=== PATIENT | male | born 1950 | race Caucasian/White ===

== ENCOUNTER 2023-02-25 14:08 | Emergency (ER) | payer OTHER, MEDICAID ==
[~2023-02-25] VITALS: Ht 177.8 cm; Wt 68.0 kg
[2023-02-25 14:15] VITALS: BP 116/58; PULSE 82; RESP 20; TEMP 98.5; O2SAT 99
--- NOTE | 2023-02-25 14:16 | NUR ---
Pt to bed 2. Bought in by ambulance-[facility]. Pt brought in for hematuria in his F/C. Hx of UTI/Sepsis 2 weeks ago.
--- NOTE | 2023-02-25 14:36 | NUR ---
EVALUATING PT AT BS.
[2023-02-25 15:31] LABS: HEMATOCRIT 35.7 % (36-52); MEAN CORPUSCULAR HEMOGLOBIN 30 pg (27-31); MEAN CORPUSCULAR HGB CONC 34 g/dL (33-37); MEAN CORPUSCULAR VOLUME 87.9 fL (80-94); PLATELET COUNT (AUTO) 376 K/uL (140-450); RED BLOOD CELL COUNT(AUTO) 4.06 MIL/uL (4.20-6.10); RED CELL DISTRIBUTION WIDTH 15.1 % (11.6-13.7); WHITE BLOOD COUNT (AUTO) 20.5 K/uL (4.8-10.8)
[2023-02-25 15:39] LABS: ANION GAP 11.8 (8-16); CARBON DIOXIDE 30.2 mmol/L (21-32); CHLORIDE 96 mmol/L (98-107); GLUCOSE 97 mg/dL (74-106); SODIUM SERUM 134 mmol/L (136-145); UREA NITROGEN, BLOOD 21 mg/dL (7-18)
[2023-02-25 15:48] LABS: PROTHROMBIN TIME 10.8 secs (10.8-13.4)
[2023-02-25 15:54] LABS: EOSINOPHILS % (MANUAL) 1 % (0-4); LYMPHOCYTES % (MANUAL) 14 % (20-46); MONOCYTES % (MANUAL) 3 % (5-12)
[2023-02-25 15:55] LABS: PROMYELOCYTES % 1 % (0-0)
--- NOTE | 2023-02-25 17:20 | NUR ---
AT RE-EVALUATING THE PT. EXPLAINED TO THE PT THE IMPORTANCE OF OBTAINING ADDITIONAL LABS. PT HAD PREVIOUSLY REFUSED. PT NOW AGREEING TO ALLOW BLD DRAW. [facility]A SENT TO LAB.
--- NOTE | 2023-02-25 17:44 | NUR ---
LAB DRAWING PT'S BLOOD AND CULTURES.
--- NOTE | 2023-02-25 18:27 | NUR ---
FORMED BM X 1 NOTED. DIAPER CHANGED. PERICARE PERFORMED. PT TOLERATED IT WELL. F/C DRAINING BRIGHT RED BLOODY URINE. NO CLOTS NOTED.
[2023-02-25 18:52] LABS: APPEARANCE,URINE BLOODY (CLEAR); BILIRUBIN,URINE 1+ (NEGATIVE); BLOOD, URINE 3+ (NEGATIVE); COLOR,URINE RED (YELLOW); LEUKOCYTE ESTERASE ,URINE 3+ (NEGATIVE); NITRITE, URINE POSITIVE (NEGATIVE); PH,URINE 7.5 (5.0-9.0); UGLUCOSE 1+ (NEGATIVE)
--- NOTE | 2023-02-25 19:02 | NUR ---
PT ANXIOUS TO GO HOME. AT INFORMING PT THAT HE WOULD LIKE TO ADMIT THE PT. PT ASKING PT IF HE WOULD BE WILLING TO ALLOW FOR AN IV TO BE INSERTED.
[2023-02-25 19:03] LABS: RBC,URINE 20-50 /HPF (0-5)
[2023-02-25] MEDS ORDERED: cefTRIAXone 1,000 MG VIAL ONE (20:01)
--- NOTE | 2023-02-26 00:53 | NUR ---
[facility] TRANSPORT AT BEDSIDE
--- NOTE | 2023-02-26 00:54 | NUR ---
Patient to be transferred to [facility]. Is being transferred due to insurance purpose. Receiving facility has accepting physician and available space. ER physician has signed transfer form. Patient or responsible constitution party has agreed to transfer and signed form. Patient belongings inventoried and will be sent with patient. Copy of nursing notes, lab reports, EKG, Physicians Orders and X-rays to be sent with patient. Report called to MARTHA Welsh at receiving facility. [facility] ambulance service has arrived for transport. Pt left ED in stable condition.
[2023-02-26 01:09] VITALS: BP 114/51; PULSE 76; RESP 20; TEMP 97.4; O2SAT 95
--- NOTE | 2023-02-26 01:09 | NUR ---
PT TAKEN BY [facility] TRANSPORT TO [facility]
== END 2023-02-26 01:09 | disposition short-term general hospital (02) ==
LOC: MED 14:08
DX: N39.0 Urinary tract infection, site not specified (principal); D72.829 Elevated white blood cell count, unspecified; Z20.822 Contact with and (suspected) exposure to COVID-19; K21.9 Gastro-esophageal reflux disease without esophagitis; E78.5 Hyperlipidemia, unspecified; I10 Essential (primary) hypertension; Z86.69 Personal history of other diseases of the nervous system and sense organs
CPT/HCPCS: 36415; 51702; 80048; 81001; 83605; 85025; 85610; 85730; 87040; 87086; 87426; 96365; 99285; J0696

== ENCOUNTER 2023-03-28 22:55 | Emergency (ER) | payer OTHER, MEDICAID ==
[~2023-03-28] VITALS: Ht 170.2 cm; Wt 63.5 kg
[2023-03-28 22:56] VITALS: BP 144/72; PULSE 87; RESP 18; TEMP 99; O2SAT 97
[2023-03-28 23:40] VITALS: O2SAT 96
[2023-03-29 01:07] VITALS: TEMP 99
[2023-03-29] MEDS ORDERED: ONDANSETRON 4 MG/2 ML VIAL IVP ONE (02:15)
[2023-03-29] MEDS ORDERED: VANCOMYCIN 1,000 MG in DEXTROSE 5% 250 ML IV ONE (02:15)
[2023-03-29] MEDS ORDERED: MEROPENEM 1,000 MG in NACL 0.9% 50 ML IV ONE (02:15)
[2023-03-29] MEDS ORDERED: NACL 0.9% 1,000 ML IV ONE (02:15)
[2023-03-29] MEDS ORDERED: MEROPENEM 1,000 MG VIAL IV ONE (02:36)
[2023-03-29 03:24] LABS: HEMATOCRIT 35.2 % (36-52); HEMOGLOBIN 12.2 g/dL (12.0-18.0); MEAN CORPUSCULAR HEMOGLOBIN 30 pg (27-31); MEAN CORPUSCULAR HGB CONC 35 g/dL (33-37); MEAN CORPUSCULAR VOLUME 86.7 fL (80-94); PLATELET COUNT (AUTO) 337 K/uL (140-450); RED BLOOD CELL COUNT(AUTO) 4.06 MIL/uL (4.20-6.10); RED CELL DISTRIBUTION WIDTH 15.4 % (11.6-13.7); WHITE BLOOD COUNT (AUTO) 24.1 K/uL (4.8-10.8)
[2023-03-29 03:31] VITALS: O2SAT 96
[2023-03-29 03:44] LABS: ALANINE AMINOTRANSFERASE 25 U/L (12-78); ALBUMIN 3.3 g/dL (3.4-5.0); ALKALINE PHOSPHATASE 91 U/L (50-136); ANION GAP 11.3 (8-16); ASPARTATE AMINOTRANSFERASE 28 U/L (15-37); CARBON DIOXIDE 27.9 mmol/L (21-32); CHLORIDE 94 mmol/L (98-107); CREATININE 1.3 mg/dL (0.6-1.3); GLUCOSE 129 mg/dL (74-106); POTASSIUM 4.2 mmol/L (3.5-5.1); SODIUM SERUM 129 mmol/L (136-145); TOTAL BILIRUBIN 0.8 mg/dL (0.0-1.0); TOTAL PROTEIN, SERUM 7.4 g/dL (6.4-8.2); UREA NITROGEN, BLOOD 21 mg/dL (7-18)
[2023-03-29] MEDS ORDERED: VANCOMYCIN 1,000 MG VIAL ONE (03:45)
[2023-03-29] MEDS ORDERED: ONDANSETRON 4 MG/2 ML VIAL ONE (03:45)
[2023-03-29 03:49] LABS: LYMPHOCYTES % (MANUAL) 4 % (20-46); MONOCYTES % (MANUAL) 5 % (5-12)
[2023-03-29 04:10] LABS: APPEARANCE,URINE CLOUDY (CLEAR); BILIRUBIN,URINE NEGATIVE (NEGATIVE); BLOOD, URINE 3+ (NEGATIVE); COLOR,URINE YELLOW (YELLOW); LEUKOCYTE ESTERASE ,URINE 3+ (NEGATIVE); NITRITE, URINE NEGATIVE (NEGATIVE); PROTEIN,URINE 2+ (NEGATIVE); UGLUCOSE NEGATIVE (NEGATIVE); UROBILINOGEN,URINE 0.2 EU/dL (0.2 - 1)
[2023-03-29 04:16] LABS: BACTERIA,URINE 4+ /HPF (None Seen); SQUAMOUS EPITHELIAL CELL,UR 0-3 (FEW) /LPF (0-3 (FEW)); WBC,URINE TOO MANY TO COUNT /HPF (0-5)
[2023-03-29] MEDS ORDERED: cefTRIAXone 1,000 MG VIAL ONE (04:54)
[2023-03-29 05:41] VITALS: BP 114/60; PULSE 76; RESP 27; O2SAT 27
== END 2023-03-29 06:45 | disposition short-term general hospital (02) ==
LOC: MED 22:55
DX: R11.2 Nausea with vomiting, unspecified (principal); N39.0 Urinary tract infection, site not specified; J98.11 Atelectasis; K21.9 Gastro-esophageal reflux disease without esophagitis; I10 Essential (primary) hypertension; E78.5 Hyperlipidemia, unspecified; D64.9 Anemia, unspecified; G40.909 Epilepsy, unspecified, not intractable, without status epilepticus; Z20.822 Contact with and (suspected) exposure to COVID-19
CPT/HCPCS: 36415; 51702; 71045; 80053; 81001; 83605; 85025; 87040; 87086; 87426; 93005; 96365; 96368; 96375; 99285; J0696; J2185; J2405; J3370; J7030; Q0092

== ENCOUNTER 2023-04-21 07:05 | Emergency (ER) | payer OTHER, MEDICAID ==
[~2023-04-21] VITALS: Ht 172.7 cm; Wt 70.3 kg
[2023-04-21 07:14] VITALS: BP 143/70; PULSE 96; RESP 16; O2SAT 96
[2023-04-21 08:36] LABS: BILIRUBIN,URINE 2+ (NEGATIVE); BLOOD, URINE 3+ (NEGATIVE); LEUKOCYTE ESTERASE ,URINE 2+ (NEGATIVE); NITRITE, URINE POSITIVE (NEGATIVE); PROTEIN,URINE 3+ (NEGATIVE); UGLUCOSE NEGATIVE (NEGATIVE)
[2023-04-21 08:38] LABS: APPEARANCE,URINE BLOODY (CLEAR)
[2023-04-21 08:54] LABS: ICTOTEST NEGATIVE (NEGATIVE); RBC,URINE TOO NUMEROUS TO COUN /HPF (0-5)
[2023-04-21 08:55] LABS: BACTERIA,URINE FEW /HPF (None Seen); SQUAMOUS EPITHELIAL CELL,UR 0-3 (FEW) /LPF (0-3 (FEW)); WBC,URINE 20-60 /HPF (0-5)
[2023-04-21] MEDS ORDERED: NACL 0.9% 1,000 ML IV ONE (08:55)
[2023-04-21 08:59] LABS: COLOR,URINE AMBER (YELLOW)
[2023-04-21] MEDS ORDERED: cefTRIAXone 1,000 MG VIAL ONE (09:28)
[2023-04-21 10:30] LABS: BASOPHILS % (AUTO) 0.3 % (0.0-2.0); EOSINOPHILS # (AUTO) 0.1 K/uL (0-0.4); EOSINOPHILS % (AUTO) 0.3 % (0.0-4.0); HEMATOCRIT 35.6 % (36-52); HEMOGLOBIN 11.9 g/dL (12.0-18.0); LYMPHOCYTES # (AUTO) 0.8 K/uL (2.0-11.5); LYMPHOCYTES % (AUTO) 4.2 % (20.5-51.1); MEAN CORPUSCULAR HEMOGLOBIN 29 pg (27-31); MEAN CORPUSCULAR HGB CONC 33 g/dL (33-37); MEAN CORPUSCULAR VOLUME 87.5 fL (80-94); MONOCYTES # (AUTO) 0.9 K/uL (0.8-1.0); MONOCYTES % (AUTO) 4.7 % (1.7-9.3); NEUTROPHILS % (AUTO) 90.5 % (42.2-75.2); PLATELET COUNT (AUTO) 449 K/uL (140-450); RED BLOOD CELL COUNT(AUTO) 4.07 MIL/uL (4.20-6.10); RED CELL DISTRIBUTION WIDTH 14.6 % (11.6-13.7)
[2023-04-21 10:38] LABS: WHITE BLOOD COUNT (AUTO) 19.9 K/uL (4.8-10.8)
[2023-04-21 10:48] LABS: ALANINE AMINOTRANSFERASE 23 U/L (12-78); ALBUMIN 3.5 g/dL (3.4-5.0); ALKALINE PHOSPHATASE 111 U/L (50-136); ANION GAP 13.2 (8-16); ASPARTATE AMINOTRANSFERASE 18 U/L (15-37); CALCIUM 9.6 mg/dL (8.5-10.1); CARBON DIOXIDE 26.9 mmol/L (21-32); CHLORIDE 99 mmol/L (98-107); CREATININE 0.9 mg/dL (0.6-1.3); GLUCOSE 98 mg/dL (74-106); LIPASE 107 U/L (73-393); POTASSIUM 4.1 mmol/L (3.5-5.1); SODIUM SERUM 135 mmol/L (136-145); TOTAL BILIRUBIN 0.3 mg/dL (0.0-1.0); TOTAL PROTEIN, SERUM 7.8 g/dL (6.4-8.2); UREA NITROGEN, BLOOD 15 mg/dL (7-18)
[2023-04-21 14:15] VITALS: BP 115/52; PULSE 72; RESP 19; TEMP 98.4; O2SAT 100
== END 2023-04-21 14:18 | disposition short-term general hospital (02) ==
LOC: MED 07:05
DX: N39.0 Urinary tract infection, site not specified (principal); R33.9 Retention of urine, unspecified; I12.9 Hypertensive chronic kidney disease with stage 1 through stage 4 chronic kidney disease, or unspecified chronic kidney disease; N18.9 Chronic kidney disease, unspecified; D64.9 Anemia, unspecified; K21.9 Gastro-esophageal reflux disease without esophagitis; E78.5 Hyperlipidemia, unspecified
CPT/HCPCS: 36415; 51702; 80053; 81001; 83605; 83690; 84484; 85025; 87040; 87086; 93005; 96365; 99285; J0696; J7030

== ENCOUNTER 2023-05-03 09:53 | Emergency (ER) | payer MEDICARE, OTHER ==
[2023-05-03] VITALS (7 sets, daily range): BP systolic 108–113; BP diastolic 56–62; PULSE 78–90; RESP 16–20; TEMP 97.6; O2SAT 98–99
[~2023-05-03] VITALS: Ht 170.2 cm; Wt 59.0 kg
[2023-05-03 14:22] LABS: APPEARANCE,URINE CLEAR (CLEAR); BILIRUBIN,URINE NEGATIVE (NEGATIVE); BLOOD, URINE 3+ (NEGATIVE); COLOR,URINE YELLOW (YELLOW); LEUKOCYTE ESTERASE ,URINE TRACE (NEGATIVE); NITRITE, URINE NEGATIVE (NEGATIVE); PROTEIN,URINE 3+ (NEGATIVE); UGLUCOSE NEGATIVE (NEGATIVE); UROBILINOGEN,URINE 0.2 EU/dL (0.2 - 1)
[2023-05-03 14:33] LABS: BACTERIA,URINE FEW /HPF (None Seen); MUCUS,URINE None Seen /LPF (None Seen); RBC,URINE TOO NUMEROUS TO COUN /HPF (0-5); SQUAMOUS EPITHELIAL CELL,UR None Seen /LPF (0-3 (FEW)); TRICHOMONAS,URINE None Seen /HPF (None Seen); WHITE BLOOD CELL CASTS,URINE None Seen /LPF (None Seen); YEAST,URINE None Seen /HPF (None Seen)
[2023-05-03 14:36] LABS: BASOPHILS % (AUTO) 0.3 % (0.0-2.0); EOSINOPHILS % (AUTO) 0.2 % (0.0-4.0); HEMATOCRIT 30.2 % (36-52); HEMOGLOBIN 10.1 g/dL (12.0-18.0); LYMPHOCYTES # (AUTO) 1.2 K/uL (2.0-11.5); LYMPHOCYTES % (AUTO) 7.3 % (20.5-51.1); MEAN CORPUSCULAR HEMOGLOBIN 29 pg (27-31); MEAN CORPUSCULAR HGB CONC 33 g/dL (33-37); MONOCYTES # (AUTO) 0.6 K/uL (0.8-1.0); MONOCYTES % (AUTO) 3.6 % (1.7-9.3); NEUTROPHILS # (AUTO) 14.9 K/uL (1.8-7.7); NEUTROPHILS % (AUTO) 88.6 % (42.2-75.2); PLATELET COUNT (AUTO) 329 K/uL (140-450); RED BLOOD CELL COUNT(AUTO) 3.47 MIL/uL (4.20-6.10); RED CELL DISTRIBUTION WIDTH 14.5 % (11.6-13.7); WHITE BLOOD COUNT (AUTO) 16.8 K/uL (4.8-10.8)
[2023-05-03 14:58] LABS: ALANINE AMINOTRANSFERASE 20 U/L (12-78); ALBUMIN 3.3 g/dL (3.4-5.0); ALKALINE PHOSPHATASE 101 U/L (50-136); ANION GAP 9.7 (8-16); ASPARTATE AMINOTRANSFERASE 13 U/L (15-37); CALCIUM 9.2 mg/dL (8.5-10.1); CARBON DIOXIDE 29.6 mmol/L (21-32); CHLORIDE 101 mmol/L (98-107); GLUCOSE 117 mg/dL (74-106); POTASSIUM 4.3 mmol/L (3.5-5.1); SODIUM SERUM 136 mmol/L (136-145); TOTAL BILIRUBIN 0.2 mg/dL (0.0-1.0); UREA NITROGEN, BLOOD 16 mg/dL (7-18)
[2023-05-03 15:01] LABS: LACTIC ACID 1.6 mmol/L (0.4-2.0)
[2023-05-03 15:10] LABS: PROTHROMBIN TIME 10.5 secs (10.8-13.4)
[2023-05-03] MEDS ORDERED: NACL 0.9% 1,000 ML IV ONE (15:10)
[2023-05-03] MEDS ORDERED: cefTRIAXone 1,000 MG VIAL ONE (15:50)
[2023-05-03 16:24] LABS: FLU A ANTIGEN negative (NEGATIVE); FLU B ANTIGEN NEGATIVE (NEGATIVE)
== END 2023-05-03 19:45 | disposition short-term general hospital (02) ==
LOC: MED 09:53
DX: S37.30XA Unspecified injury of urethra, initial encounter (principal); R31.9 Hematuria, unspecified; D72.829 Elevated white blood cell count, unspecified; I95.9 Hypotension, unspecified; D64.9 Anemia, unspecified; R33.9 Retention of urine, unspecified; Z20.822 Contact with and (suspected) exposure to COVID-19; E78.5 Hyperlipidemia, unspecified; K21.9 Gastro-esophageal reflux disease without esophagitis; I10 Essential (primary) hypertension; Z87.448 Personal history of other diseases of urinary system; X58.XXXA Exposure to other specified factors, initial encounter; Y92.89 Other specified places as the place of occurrence of the external cause; Y93.89 Activity, other specified; Y99.8 Other external cause status
CPT/HCPCS: 36415; 51702; 80053; 81001; 83605; 85025; 85610; 85730; 86886; 86900; 86901; 87040; 87086; 87426; 87804; 96365; 99291; J0696; J7030; 99285

== ENCOUNTER 2023-05-07 03:00 | Inpatient (IN) | payer MEDICARE, MEDICAID ==
[~2023-05-07] VITALS: Ht 170.2 cm; Wt 59.0 kg
[2023-05-07 03:06] VITALS: BP 145/77; PULSE 99; RESP 16; TEMP 98.1; O2SAT 99
[2023-05-07 03:32] VITALS: O2SAT 98
[2023-05-07 05:07] LABS: APPEARANCE,URINE CLEAR (CLEAR); BILIRUBIN,URINE NEGATIVE (NEGATIVE); BLOOD, URINE 3+ (NEGATIVE); COLOR,URINE YELLOW (YELLOW); LEUKOCYTE ESTERASE ,URINE 2+ (NEGATIVE); NITRITE, URINE POSITIVE (NEGATIVE); PROTEIN,URINE 3+ (NEGATIVE); UGLUCOSE NEGATIVE (NEGATIVE)
[2023-05-07 05:11] LABS: BACTERIA,URINE 10-30 (MOD) /HPF (None Seen); MUCUS,URINE 1+ /LPF (None Seen); RBC,URINE TOO NUMEROUS TO COUN /HPF (0-5); SQUAMOUS EPITHELIAL CELL,UR 0-3 (FEW) /LPF (0-3 (FEW))
[2023-05-07 08:23] VITALS: O2SAT 98
[2023-05-07 08:23] LABS: HEMATOCRIT 25.6 % (36-52); HEMOGLOBIN 8.5 g/dL (12.0-18.0); MEAN CORPUSCULAR HEMOGLOBIN 30 pg (27-31); MEAN CORPUSCULAR HGB CONC 33 g/dL (33-37); MEAN CORPUSCULAR VOLUME 88.4 fL (80-94); PLATELET COUNT (AUTO) 280 K/uL (140-450); RED CELL DISTRIBUTION WIDTH 14.6 % (11.6-13.7); WHITE BLOOD COUNT (AUTO) 24.5 K/uL (4.8-10.8)
[2023-05-07 08:39] LABS: BASOPHILS % (MANUAL) 0 % (0-2); BLASTS, MANUAL % 0 % (0-0); EOSINOPHILS % (MANUAL) 0 % (0-4); LYMPHOCYTES % (MANUAL) 3 % (20-46); METAMYELOCYTES % 0 % (0-0); MONOCYTES % (MANUAL) 2 % (5-12); MYELOCYTES % 0 % (0-0); OTHER CELLS,MANUAL % 0 (0-0); PLATELET ESTIMATE ADEQUATE; PROMYELOCYTES % 0 % (0-0)
[2023-05-07] MEDS ORDERED: NACL 0.9% 1,500 ML IV ONE (08:55)
[2023-05-07] MEDS: carBAMazepine 200 MG TAB PO SCH ×2 (09:00→21:00)
[2023-05-07 09:08] LABS: ANION GAP 12.2 (8-16); CALCIUM 9.2 mg/dL (8.5-10.1); CARBON DIOXIDE 26.8 mmol/L (21-32); CHLORIDE 103 mmol/L (98-107); GLUCOSE 144 mg/dL (74-106); SODIUM SERUM 138 mmol/L (136-145); UREA NITROGEN, BLOOD 17 mg/dL (7-18)
[2023-05-07] MEDS ORDERED: cefTRIAXone 1,000 MG VIAL ONE (09:42)
[2023-05-07 09:49] LABS: LACTIC ACID 3.4 mmol/L (0.4-2.0)
[2023-05-07] MEDS ORDERED: METO10TA11 PO (10:58)
[2023-05-07] MEDS ORDERED: TAMS0.4C97 PO (10:58)
[2023-05-07] MEDS ORDERED: CARB200T7 PO (10:58)
[2023-05-07] MEDS ORDERED: FAMO20TA13 PO (10:58)
[2023-05-07] MEDS ORDERED: [UNRECOGNIZED DRUG - CODE] PO (10:58)
[2023-05-07] MEDS ORDERED: FINA5TAB5 PO (10:58)
[2023-05-07] MEDS ORDERED: SIMV-30 PO (10:58)
[2023-05-07] MEDS ORDERED: ONDANSETRON 4 MG/2 ML VIAL IVP PRN (11:10)
[2023-05-07] MEDS ORDERED: MAGNESIUM OXIDE 400 MG TAB PO PRN (11:10)
[2023-05-07] MEDS ORDERED: MORPHINE SULFATE 4 MG/ML SYR IVP PRN (11:10)
[2023-05-07] MEDS ORDERED: KCL 20 MEQ IN 100 mL PREMIX 200 ML IV PRN (11:10)
[2023-05-07] MEDS ORDERED: POTASSIUM CHLORIDE 10 MEQ TABER PO PRN (11:10)
[2023-05-07] MEDS ORDERED: ACETAMINOPHEN 325 MG TAB PO PRN (11:10)
[2023-05-07] MEDS ORDERED: HYDROcodone/APAP 5/325 MG 1 TAB TAB PO PRN (11:10)
[2023-05-07] MEDS: NACL 0.9% 1,000 ML IV SCH ×2 (11:45→23:40)
[2023-05-07 19:53] VITALS: PULSE 82; RESP 17; O2SAT 99
[2023-05-07 20:00] VITALS: BP 139/70; PULSE 82; RESP 17; TEMP 98.8; O2SAT 99
[2023-05-07 20:25] VITALS: PULSE 79
[2023-05-07] MEDS ORDERED: FAMOTIDINE 20 MG TAB PO ONE (22:10)
[2023-05-07] MEDS ORDERED: carBAMazepine 200 MG TAB PO ONE (22:10)
[2023-05-08] VITALS: BP 125/67; PULSE 89; RESP 16; TEMP 98.5; O2SAT 99
[2023-05-08] MEDS: NACL 0.9% 1,000 ML IV SCH ×2 (01:08→12:10)
[2023-05-08 04:00] VITALS: PULSE 73; PULSE 84
[2023-05-08 06:07] LABS: BASOPHILS % (AUTO) 0.4 % (0.0-2.0); EOSINOPHILS # (AUTO) 0.1 K/uL (0-0.4); EOSINOPHILS % (AUTO) 1.4 % (0.0-4.0); LYMPHOCYTES # (AUTO) 1.9 K/uL (2.0-11.5); LYMPHOCYTES % (AUTO) 18.5 % (20.5-51.1); MEAN CORPUSCULAR HEMOGLOBIN 31 pg (27-31); MEAN CORPUSCULAR HGB CONC 34 g/dL (33-37); MEAN CORPUSCULAR VOLUME 89.1 fL (80-94); MONOCYTES # (AUTO) 0.7 K/uL (0.8-1.0); NEUTROPHILS # (AUTO) 7.7 K/uL (1.8-7.7); NEUTROPHILS % (AUTO) 72.7 % (42.2-75.2); PLATELET COUNT (AUTO) 203 K/uL (140-450); RED BLOOD CELL COUNT(AUTO) 2.07 MIL/uL (4.20-6.10); RED CELL DISTRIBUTION WIDTH 14.7 % (11.6-13.7); WHITE BLOOD COUNT (AUTO) 10.6 K/uL (4.8-10.8)
[2023-05-08 06:14] LABS: HEMATOCRIT 18.4 % (36-52); HEMOGLOBIN 6.3 g/dL (12.0-18.0)
[2023-05-08 06:34] LABS: ANION GAP 8.8 (8-16); CALCIUM 8.3 mg/dL (8.5-10.1); CHLORIDE 108 mmol/L (98-107); CREATININE 0.7 mg/dL (0.6-1.3); GLUCOSE 104 mg/dL (74-106); POTASSIUM 3.8 mmol/L (3.5-5.1); SODIUM SERUM 141 mmol/L (136-145); UREA NITROGEN, BLOOD 12 mg/dL (7-18)
[2023-05-08 08:00] VITALS: BP 134/73; PULSE 76; PULSE 77; RESP 17; TEMP 97.8; O2SAT 99
[2023-05-08] MEDS: carBAMazepine 200 MG TAB PO SCH ×2 (09:40→20:55)
[2023-05-08] MEDS: FAMOTIDINE 20 MG TAB PO SCH ×2 (09:40→20:54)
[2023-05-08 12:00] VITALS: BP 101/39; PULSE 73; PULSE 83; RESP 18; TEMP 97.9; O2SAT 98
[2023-05-08 16:00] VITALS: BP 124/55; PULSE 64; PULSE 68; RESP 19; TEMP 98; O2SAT 100
[2023-05-08 18:47] LABS: HEMOGLOBIN 7.1 g/dL (12.0-18.0)
[2023-05-08 20:00] VITALS: BP 133/86; PULSE 70; PULSE 85; RESP 18; TEMP 97.5; O2SAT 98
[2023-05-09] VITALS: BP 130/81; PULSE 53; PULSE 61; PULSE 82; RESP 17; TEMP 97.8; O2SAT 100
[2023-05-09] MEDS: NACL 0.9% 1,000 ML IV SCH ×2 (00:40→13:10)
[2023-05-09 04:00] VITALS: BP 135/79; PULSE 61; PULSE 66; PULSE 84; RESP 17; TEMP 97.5; O2SAT 100
[2023-05-09 05:27] LABS: BASOPHILS # (AUTO) 0.1 K/uL (0.00-0.22); BASOPHILS % (AUTO) 1.1 % (0.0-2.0); EOSINOPHILS # (AUTO) 0.7 K/uL (0-0.4); EOSINOPHILS % (AUTO) 6.2 % (0.0-4.0); HEMATOCRIT 22.7 % (36-52); HEMOGLOBIN 7.5 g/dL (12.0-18.0); LYMPHOCYTES % (AUTO) 17.3 % (20.5-51.1); MEAN CORPUSCULAR HEMOGLOBIN 29 pg (27-31); MEAN CORPUSCULAR HGB CONC 33 g/dL (33-37); MEAN CORPUSCULAR VOLUME 88.3 fL (80-94); MONOCYTES # (AUTO) 0.8 K/uL (0.8-1.0); NEUTROPHILS # (AUTO) 7.8 K/uL (1.8-7.7); NEUTROPHILS % (AUTO) 68.4 % (42.2-75.2); PLATELET COUNT (AUTO) 212 K/uL (140-450); RED BLOOD CELL COUNT(AUTO) 2.57 MIL/uL (4.20-6.10); RED CELL DISTRIBUTION WIDTH 16.5 % (11.6-13.7); WHITE BLOOD COUNT (AUTO) 11.4 K/uL (4.8-10.8)
[2023-05-09 06:34] LABS: ANION GAP 8.5 (8-16); CALCIUM 8.1 mg/dL (8.5-10.1); CHLORIDE 108 mmol/L (98-107); CREATININE 0.7 mg/dL (0.6-1.3); GLUCOSE 92 mg/dL (74-106); POTASSIUM 3.5 mmol/L (3.5-5.1); SODIUM SERUM 141 mmol/L (136-145); UREA NITROGEN, BLOOD 8 mg/dL (7-18)
[2023-05-09 08:00] VITALS: BP 128/56; PULSE 67; PULSE 86; RESP 17; TEMP 99; O2SAT 98
[2023-05-09] MEDS: FAMOTIDINE 20 MG TAB PO SCH (09:50)
[2023-05-09] MEDS: carBAMazepine 200 MG TAB PO SCH (09:50)
[2023-05-09 12:00] VITALS: BP 121/65; PULSE 71; RESP 18; TEMP 97.7; O2SAT 96
[2023-05-09] MEDS ORDERED: TAMS0.4C96 PO (12:34)
[2023-05-09] MEDS ORDERED: CEFD300C3 PO (12:34)
[2023-05-09] MEDS ORDERED: FINA-54 PO (12:35)
[2023-05-09 13:49] VITALS: BP 128/56; PULSE 67; RESP 17; TEMP 99
[2023-05-12] MEDS ORDERED: FERR325E14 PO (14:13)
== END 2023-05-09 15:54 | disposition home health service (06) | DRG 871 ==
LOC: MED 03:00 → MTU 11:09 → MMU 17:23 → MTU 17:34
PROVIDERS: ADMIT Student in an Organized Health Care Education/Training Program; ATTEND Student in an Organized Health Care Education/Training Program
PROC: 30233N1 Transfusion of Nonautologous Red Blood Cells into Peripheral Vein, Percutaneous Approach (ICD-10-PCS; principal; 2023-05-08)
DX: A41.9 Sepsis, unspecified organism (principal); J18.9 Pneumonia, unspecified organism; N39.0 Urinary tract infection, site not specified; E86.1 Hypovolemia; D72.829 Elevated white blood cell count, unspecified; E78.5 Hyperlipidemia, unspecified; K21.9 Gastro-esophageal reflux disease without esophagitis; I10 Essential (primary) hypertension; N40.0 Benign prostatic hyperplasia without lower urinary tract symptoms; Z20.822 Contact with and (suspected) exposure to COVID-19
CPT/HCPCS: 36415; 36430; 71045; 76770; 80048; 81001; 83605; 85018; 85025; 86886; 86900; 86901; 86920; 87040; 87081; 87086; 96361; 96365; 99285; J0696; J7060; P9016; Q0092